=== PATIENT | male | born 1970 | race Two or more races ===

== ENCOUNTER 2019-04-11 05:43 | Emergency (ER) | payer BC ==
[~2019-04-11] VITALS: Ht 185.4 cm; Wt 106.6 kg
[2019-04-11] MEDS ORDERED: LIDO:MAALOX 1:1 20 ML SINGLE DOSE. SWSW ONE (06:30)
[2019-04-11] MEDS ORDERED: FAMOTIDINE 20 MG TABLET. PO ONE (06:30)
[2019-04-11 06:39] LABS: BASO % 1 % (0-3); EOS # 0.1 x10^3/uL (0.0-0.7); EOS % 1 % (0-3); HEMATOCRIT 44.2 % (39.0-53.0); HEMOGLOBIN 15.2 g/dL (13.0-17.5); LYMPH % 36 % (24-48); MEAN CORPUSCULAR HEMOGLOBIN 35 pg (25-35); MEAN CORPUSCULAR HGB CONC 35 g/dL (31-37); MEAN CORPUSCULAR VOLUME 100 fL (79-100); MONO # 0.7 x10^3/uL (0.0-1.1); MONO % 12 % (0-9); NEUT # 2.8 x10^3uL (1.8-7.7); NEUT % 50 % (31-73); PLATELET COUNT 240 x10^3/uL (140-400); RED BLOOD COUNT 4.41 x10^6/uL (4.30-5.70); RED CELL DISTRIBUTION WIDTH 13.2 % (11.5-14.5); WHITE BLOOD COUNT 5.6 x10^3/uL (4.0-11.0)
[2019-04-11 06:55] LABS: CALCIUM 9.4 mg/dL (8.5-10.1); GFR 80.1; POTASSIUM 4.2 mmol/L (3.5-5.1)
--- NOTE | 2019-04-11 06:57 | RAD ---
Limited ultrasound abdomen April 11, 2019 INDICATION: Upper abdominal pain. COMPARISON: None available. TECHNIQUE: Sonographic evaluation of the right upper quadrant was performed utilizing grayscale and color Doppler. FINDINGS: There is increased echogenicity of the hepatic parenchyma suggestive of hepatocellular disease, most commonly hepatic steatosis. Findings Limited evaluation for underlying hepatic masses. There is hepatopedal flow within the portal venous system. Right hepatic lobe measures 21.1 cm. There is no intrahepatic or extrahepatic biliary ductal dilatation. Pancreas is not well visualized. IVC is patent. Aorta is not well visualized. Gallbladder is normal in appearance. No gallstones, gallbladder wall thickening or pericholecystic fluid. Negative sonographic Maria sign. Right kidney measures 12.5 x 5.6 x 4.9 cm. There is no hydronephrosis. No suspicious renal mass. No renal calculi. There is no free fluid in the abdomen. IMPRESSION: Increased echogenicity of the hepatic parenchyma suggestive of hepatocellular disease, most commonly hepatic steatosis. Hepatomegaly. Electronically signed by: Tamiko Vale MD (04/11/2019 6:54 AM) [facility]
--- NOTE | 2019-04-11 06:58 | RAD ---
Chest radiograph 04/11/2019 6:03 AM INDICATION: Chest pain COMPARISON: None available TECHNIQUE: Portable upright frontal view of the chest is provided. FINDINGS: The cardiomediastinal silhouette is within normal limits. There are no pleural effusions. There is no pulmonary vascular congestion. There is no pneumothorax. The lungs are clear. No significant osseous abnormality is identified. IMPRESSION: No acute cardiopulmonary process. Electronically signed by: Tamiko Vale MD (04/11/2019 6:55 AM) [facility]
[2019-04-11 07:00] LABS: TOTAL BILIRUBIN 0.4 mg/dL (0.2-1.0); TOTAL PROTEIN 8.2 g/dL (6.4-8.2)
--- NOTE | 2019-04-11 07:19 | EKG ---
[facility] [address] [place] [address] Test Date: 2019-04-11 Test Time: 06:16:22 Pat Name: DOUGIE RICE Department: Room: Gender: M [employer]: : [id number] Requested By: MATILDE VELÁZQUEZ Order Number: [id number] Reading MD: Measurements Intervals [place] Rate: 93 P: 0 UT: 150 QRS: -15 QRSD: 92 T: 12 QT: 332 QTc: 415 Interpretive Statements SINUS RHYTHM LEFTWARD AXIS CONSIDER LEFT VENTRICULAR HYPERTROPHY POSSIBLY ABNORMAL ECG RI6.01 Unconfirmed report No previous ECG available for comparison
[2019-04-11] MEDS ORDERED: RANI300T3 PO (07:53)
--- NOTE | 2019-04-11 07:53 | PHYS DOC ---
Past Medical History Past Medical History: High Cholesterol, Hypertension Past Surgical History: Tonsillectomy Alcohol Use: Heavy Drug Use: None Adult General Chief Complaint Chief Complaint: ABDOMINAL PAIN HPI HPI Patient is a 48-year-old otherwise healthy male presents with a several day history of epigastric pain. He states when he eats he feels like food gets stuck in his epigastric area he has a fair amount of pain in that area. However, he states it's this does not limit what he eats on a daily basis. He states there is no particular food that makes it worse. He states in the morning he has a sour taste in his mouth any often has a coughing fit. He is never been treated for reflux in the past.[] Review of Systems Review of Systems Constitutional: Denies fever or chills [] Eyes: Denies change in visual acuity, redness, or eye pain [] HENT: Denies nasal congestion or sore throat [] Respiratory: Denies cough or shortness of breath [] Cardiovascular: No additional information not addressed in HPI [] GI: Per history of present illness[] : Denies dysuria or hematuria [] Musculoskeletal: Denies back pain or joint pain [] Integument: Denies rash or skin lesions [] Neurologic: Denies headache, focal weakness or sensory changes [] Endocrine: Denies polyuria or polydipsia [] All other systems were reviewed and found to be within normal limits, except as documented in this note. Current Medications Current Medications Current Medications Medications (Trade) Dose Ordered Sig/Dionne Start Time Stop Time Status Last Admin Dose Admin Famotidine (Pepcid) 20 mg 1X ONCE 04/11/19 06:30 04/11/19 06:31 DC 04/11/19 06:28 20 MG Multi-Ingredient Mouthwash/Gargle (Gi Cocktail) 20 ml 1X ONCE 04/11/19 06:30 04/11/19 06:31 DC 04/11/19 06:28 20 ML Allergies Allergies Allergies Coded Allergies Type Severity Reaction Last Updated Verified Penicillins Allergy Intermediate 04/11/19 Yes Physical Exam Physical Exam Constitutional: Well developed, well nourished, no acute distress, non-toxic appearance. [] HENT: Normocephalic, atraumatic, bilateral external ears normal, oropharynx moist, no oral exudates, nose normal. [] Eyes: PERRLA, EOMI, conjunctiva normal, no discharge. [] Neck: Normal range of motion, no tenderness, supple, no stridor. [] Cardiovascular:Heart rate regular rhythm, no murmur [] Lungs & Thorax: Bilateral breath sounds clear to auscultation [] Abdomen: Mild epigastric tenderness no rebound or guarding. [] Skin: Warm, dry, no erythema, no rash. [] Back: No tenderness, no CVA tenderness. [] Extremities: No tenderness, no cyanosis, no clubbing, ROM intact, no edema. [] Neurologic: Alert and oriented X 3, normal motor function, normal sensory function, no focal deficits noted. [] Psychologic: Affect normal, judgement normal, mood normal. [] Current Patient Data Vital Signs Vital Signs Date Time Temp Pulse Resp B/P (MAP) Pulse Ox O2 Delivery O2 Flow Rate FiO2 04/11/19 06:00 98.5 98 16 171/108 (129) 99 Room Air 98.5 Lab Values Laboratory Tests Test 04/11/19 06:20 White Blood Count 5.6 x10^3/uL (4.0-11.0) Red Blood Count 4.41 x10^6/uL (4.30-5.70) Hemoglobin 15.2 g/dL (13.0-17.5) Hematocrit 44.2 % (39.0-53.0) Mean Corpuscular Volume 100 fL (79-100) Mean Corpuscular Hemoglobin 35 pg (25-35) Mean Corpuscular Hemoglobin Concent 35 g/dL (31-37) Red Cell Distribution Width 13.2 % (11.5-14.5) Platelet Count 240 x10^3/uL (140-400) Neutrophils (%) (Auto) 50 % (31-73) Lymphocytes (%) (Auto) 36 % (24-48) Monocytes (%) (Auto) 12 % (0-9) H Eosinophils (%) (Auto) 1 % (0-3) Basophils (%) (Auto) 1 % (0-3) Neutrophils # (Auto) 2.8 x10^3uL (1.8-7.7) Lymphocytes # (Auto) 2.0 x10^3/uL (1.0-4.8) Monocytes # (Auto) 0.7 x10^3/uL (0.0-1.1) Eosinophils # (Auto) 0.1 x10^3/uL (0.0-0.7) Basophils # (Auto) 0.0 x10^3/uL (0.0-0.2) Sodium Level 140 mmol/L (136-145) Potassium Level 4.2 mmol/L (3.5-5.1) Chloride Level 103 mmol/L (98-107) Carbon Dioxide Level 27 mmol/L (21-32) Anion Gap 10 (6-14) Blood Urea Nitrogen 12 mg/dL (8-26) Creatinine 1.0 mg/dL (0.7-1.3) Estimated GFR (Cockcroft-Gault) 80.1 BUN/Creatinine Ratio 12 (6-20) Glucose Level 134 mg/dL (70-99) H Calcium Level 9.4 mg/dL (8.5-10.1) Total Bilirubin 0.4 mg/dL (0.2-1.0) Aspartate Amino Transferase (AST) 30 U/L (15-37) Alanine Aminotransferase (ALT) 72 U/L (16-63) H Alkaline Phosphatase 75 U/L (46-116) Troponin I Quantitative < 0.017 ng/mL (0.000-0.055) Total Protein 8.2 g/dL (6.4-8.2) Albumin 4.0 g/dL (3.4-5.0) Albumin/Globulin Ratio 1.0 (1.0-1.7) Lipase 348 U/L (73-393) Laboratory Tests 04/11/19 06:20 Laboratory Tests 04/11/19 06:20 EKG EKG [] Interpretation Time: EKG: EKG: Normal sinus rhythm rate of [address]-T changes Radiology/Procedures Radiology/Procedures []REASON: chest pain PROCEDURE: CHEST AP ONLY Chest radiograph 04/11/2019 6:03 AM INDICATION: Chest pain COMPARISON: None available TECHNIQUE: Portable upright frontal view of the chest is provided. FINDINGS: The cardiomediastinal silhouette is within normal limits. There are no pleural effusions. There is no pulmonary vascular congestion. There is no pneumothorax. The lungs are clear. No significant osseous abnormality is identified. IMPRESSION: No acute cardiopulmonary process. Impressions: REASON: upper abdominal pain PROCEDURE: ABDOMEN LTD Limited ultrasound abdomen April 11, 2019 INDICATION: Upper abdominal pain. COMPARISON: None available. TECHNIQUE: Sonographic evaluation of the right upper quadrant was performed utilizing grayscale and color Doppler. FINDINGS: There is increased echogenicity of the hepatic parenchyma suggestive of hepatocellular disease, most commonly hepatic steatosis. Findings Limited evaluation for underlying hepatic masses. There is hepatopedal flow within the portal venous system. Right hepatic lobe measures 21.1 cm. There is no intrahepatic or extrahepatic biliary ductal dilatation. Pancreas is not well visualized. IVC is patent. Aorta is not well visualized. Gallbladder is normal in appearance. No gallstones, gallbladder wall thickening or pericholecystic fluid. Negative sonographic Maria sign. Right kidney measures 12.5 x 5.6 x 4.9 cm. There is no hydronephrosis. No suspicious renal mass. No renal calculi. There is no free fluid in the abdomen. IMPRESSION: Increased echogenicity of the hepatic parenchyma suggestive of hepatocellular disease, most commonly hepatic steatosis. Hepatomegaly. Course & Med Decision Making Course & Med Decision Making Pertinent Labs and Imaging studies reviewed. (See chart for details) [ED course: Evaluation reveals 48-year-old male with epigastric pain. His symptoms certainly sound like reflux/esophagitis/gastritis. His heart score is 0. I treated him with GI cocktail and Pepcid. I'll start him on Zantac 300 mg by mouth daily at bedtime.] Dragon Disclaimer Dragon Disclaimer This electronic medical record was generated, in whole or in part, using a voice recognition dictation system. Departure Departure Impression: Primary Impression: Gastritis Additional Impression: Esophagitis Disposition: HOME, SELF-CARE Condition: IMPROVED Referrals: NO PCP (PCP) Patient Instructions: Diet for Gastroesophageal Reflux Disease, Adult, Gastritis, Adult, Gastroesophageal Reflux Disease, Adult Additional Instructions: Take medication as directed. Return to the emergency department with any new or concerning symptoms Scripts Ranitidine Hcl (ZANTAC) 300 Mg Tablet 1 TAB PO QHS for reflux, #90 TAB 3 Refills Prov: MATILDE VELÁZQUEZ DO 04/11/19 Problem Qualifiers Primary Impression: Gastritis Gastritis type: unspecified gastritis Chronicity: acute Gastritis bleeding: without bleeding Qualified Codes: K29.00 - Acute gastritis without bleeding MATILDE VELÁZQUEZ DO Apr 11, 2019 07:53
[2019-04-11 08:01] VITALS: BP 167/111
== END 2019-04-11 08:19 | disposition home or self-care (01) ==
LOC: ER 05:43
DX: K29.00 Acute gastritis without bleeding (principal); K20.9 Esophagitis, unspecified; E78.00 Pure hypercholesterolemia, unspecified; I10 Essential (primary) hypertension; Z90.89 Acquired absence of other organs; Z88.0 Allergy status to penicillin
CPT/HCPCS: 36415; 71045; 76705; 80053; 83690; 84484; 85025; 93005; 99285-25